=== PATIENT | male | born 1985 | race Caucasian/White ===

== ENCOUNTER 2018-01-07 15:47 | Emergency (ER) | payer OTHER ==
[~2018-01-07] VITALS: Ht 177.8 cm; Wt 74.8 kg
[2018-01-07 15:58] VITALS: BP 135/75; Ht 177.8 cm; Wt 74.8 kg
== END 2018-01-07 16:20 | disposition other institution (70) ==
LOC: ED 15:47
DX: Z02.89 Encounter for other administrative examinations (principal)